=== PATIENT | female | born 1965 | race Caucasian/White ===

== ENCOUNTER 2021-12-19 14:04 | Outpatient (CLI) | payer BC, SELFPAY | END 2021-12-19 14:05 | disposition home or self-care (01) | LOC: AMB 12-30 18:34 | PROVIDERS: PCP Family Medicine; Visit Provider Family Medicine | DX: R11.2 Nausea with vomiting, unspecified (principal) | CPT/HCPCS: A0425; A0427; A0429 ==

== ENCOUNTER 2021-12-19 14:30 | Emergency (ER) | payer BC, SELFPAY ==
[2021-12-19 14:35] VITALS: BP 111/93; PULSE 86; RESP 22; TEMP 36.5; O2SAT 98; BMI 18.5
[2021-12-19 15:00] VITALS: BP 123/90; PULSE 82; O2SAT 99
--- NOTE | 2021-12-19 15:22 | ED.GENADULT ---
HPI - General Adult General Chief complaint: Nausea/Vomiting Stated complaint: Abdominal pain Time Seen by Provider: 12/19/21 14:50 Source: patient History of Present Illness HPI narrative: Cindy is a 56-year-old female past medical history includes TBI, chronic fatigue, tobacco use, anxiety, status post cholecystectomy and appendectomy presents emerged department with nausea vomiting. Patient states this is a chronic issue, she has days where she has episodes of nausea vomiting and then resolve, she states that over the last 2 days she has had increased nausea vomiting and decreased oral intake. She lives at an independent living at [facility]. She has had ongoing weakness weight loss abdominal bloating, she denies any diarrhea and had no bowel movement today, last 1 was yesterday. She feels her urinary output has decreased. She has had for COVID test that were negative, she feels that she is sensitive to the chemicals in a bottle water so she has not been drinking a lot. She denies any prescription meds recreational drug use she did have a few alcoholic drinks yesterday. She missed her orientation her new job at [employer] today this has increased her anxiety as well. Patient denies any sick contacts, she denies any fevers, chills myalgias arthralgias. She has a headache frontal, she has been dizzy and lightheaded. She has been drinking Gatorade and eating crackers her to worsening symptoms presents emerged department. Related Data Previous Rx's Medication Instructions Recorded ondansetron 4 mg disintegrating 4 mg PO DAILY #10 tab 12/19/21 tablet Allergies Allergy/AdvReac Type Severity Reaction Status Date / Time buspirone [From BuSpar] Allergy Verified 12/19/21 15:52 prednisone Allergy Verified 12/19/21 15:52 Review of Systems Status of ROS: Reports: 10 or more systems reviewed and unremarkable except as noted in History and below PFSH PFSH Social History Smoking Status: Former smoker Do you use any of these nicotine containing products: None Second hand tobacco smoke exposure: No How often do you have a drink containing alcohol: 2-3 times a week How many standard drinks containing alcohol do you have on a typical day: 1 or 2 How often do you have six or more drinks on one occasion: Monthly AUDIT-C Alcohol total score: 5 Non-prescribed substance use: denies use service: No Exam Narrative: Exam Narrative: General: Anxious in appearance HEENT: Tympanic membranes within normal limits bilaterally oropharynx is clear and moist, pupils equal round reactive to light, extraocular muscles intact Neck: Supple, full range of motion Lungs: Clear to auscultation bilaterally Heart: Sinus rhythm, S1-S2 Abdomen: Hyperactive bowel sounds, generalized tenderness to mild palpation all quadrants Muscle skeletal: Upper and lower extremity strength +5, patient shaking her upper and lower extremities Neuro: Alert awake and oriented x3, no focal deficits, ambulation normal Psych: She is anxious in appearance, no SI, no hallucinations Const: Vital Signs, click to edit/add: Vital Signs - 24 hr 12/19/21 14:35 Temperature 97.7 F Pulse Rate [Pulse Oximeter] 86 Respiratory Rate 22 Blood Pressure [Le ft Upper Arm] 111/93 H Pulse Oximetry 98 Course Course Hospital Course: 3:15 p.m. workup will include IV peripheral, 0.9 normal saline bolus, 4 mg IV Zofran and 20 mg oral Pepcid, 15 mg IV Toradol, for her symptoms, we will check CBC, CRP, CMP, lipase and treat symptomatically, seems to be a chronic issue, will await lab results to see if further imaging will be obtained. Patient in agreement. Reevaluation(s) Reevaluation #1: Patient was updated on her lab results, CBC showed no acute findings, metabolic panel was unremarkable however did show elevated liver function tests but improved from previous, this is a chronic issue, troponin negative, inflammatory marker CRP was negative. Based on reassuring labs no imaging to be obtained. She was given the above care and did well, she was tolerating orals prior to discharge. Prescription for Zofran 4 mg ODT sent to her pharmacy. Plan would be to have her follow up with her primary care provider in 7-10 days, return precautions given Time: 17:46 Vital Signs Vital signs: Initial Vital Signs Temperature 97.7 F 12/19/21 14:35 Temperature Source Temporal Artery Scan 12/19/21 14:35 Pulse Rate 86 12/19/21 14:35 Pulse Rhythm 12/19/21 14:35 Respiratory Rate 22 12/19/21 14:35 Blood Pressure 111/93 H 12/19/21 14:35 Blood Pressure Mean 99 12/19/21 14:35 Blood Pressure Position Supine 12/19/21 14:35 Pulse Oximetry 98 12/19/21 14:35 Oxygen Delivery Method 12/19/21 14:35 Vital Signs Temperature 97.7 F 12/19/21 14:35 Pulse Rate 86 12/19/21 14:35 Respiratory Rate 22 12/19/21 14:35 Blood Pressure 111/93 H 12/19/21 14:35 Pulse Oximetry 98 12/19/21 14:35 Temperature 97.7 F 12/19/21 14:35 Pulse Rate 86 12/19/21 14:35 Respiratory Rate 22 12/19/21 14:35 Blood Pressure 111/93 H 12/19/21 14:35 Pulse Oximetry 98 12/19/21 14:35 Medical Decision Making Lab Data Labs: Lab Results 12/19/21 12/19/21 12/19/21 Range/Units 15:44 15:44 15:44 WBC 3.40 L (4.50-11.00) K/uL RBC 4.16 (4.00-5.20) m/uL Hgb 13.5 (12.0-16.0) gm/dL Hct 38.1 (33.0-51.0) % MCV 92 (80-100) fL MCH 33 (26-34) pg MCHC 35 (32-36) gm/dL RDW Coeff of Guera 12.5 (11.5-15.5) % Plt Count 248 (140-440) K/uL Neut % (Auto) 60.8 (42.0-72.0) % Lymph % (Auto) 32.4 (20-44) % [place] % (Auto) 5.0 (0.0-11.0) % Eos % (Auto) 0.9 (0.0-7.0) % Baso % (Auto) 0.6 (0.0-3.0) % Neut # (Auto) 2.10 (1.7-7.0) K/uL Lymph # (Auto) 1.10 (0.90-2.90) K/uL [place] # (Auto) 0.20 (0.00-0.90) K/UL Eos # (Auto) 0.00 (0.00-0.50) K/uL Baso # (Auto) 0.00 (0.00-0.30) K/uL Abs Immat Gran (auto) 0.01 (0.00-0.30) K/uL Sodium 138 (135-149) mmol/L Potassium 3.6 (3.6-5.1) mmol/L Chloride 104 (96-114) mmol/L Carbon Dioxide 21 (20-32) mmol/L BUN 7 (7-30) mg/dL Creatinine 0.6 (0.5-1.5) mg/dL Estimated Creat Clear 91.03 Estimated GFR 106 ml/min Glucose 95 (60-115) mg/dL Calcium 9.4 (8.4-10.6) mg/dL Total Bilirubin 1.1 (0.1-1.5) mg/dL AST 73 H (12-35) U/L ALT 44 H (4-35) U/L Alkaline Phosphatase 75 (40-150) U/L Troponin I < 0.01 L (0.01-0.04) ng/mL C-Reactive Protein < 0.5 L (0.5-1.0) mg/dL Total Protein 7.1 (6.0-8.3) g/dL Albumin 4.6 (3.3-5.0) g/dL Lipase 90 (23-300) U/L Discharge Plan Discharge Clinical Impression: Weakness generalized, Shaking, Nausea and vomiting Patient Disposition: Home, Self-Care Instructions: Acute Nausea and Vomiting (ED) Additional Instructions: To follow up with your Primary Care Provider in the next 7-10 days. To return if worsening symptoms. Discharge Diet: Regular Prescriptions: New ondansetron 4 mg tablet,disintegrating 4 mg PO DAILY Qty: 10 0RF Follow Up/Referrals: Derrick Can MD [Primary Care Provider] - Stand Alone Forms: [employer] Management Info Instructions
[2021-12-19 15:55] LABS: Basophils Percent Auto 0.6 % (0.0-3.0); Eosinophils Percent Auto 0.9 % (0.0-7.0); Hematocrit 38.1 % (33.0-51.0); Hemoglobin* 13.5 gm/dL (12.0-16.0); Immature Granulocytes Abs Auto 0.01 K/uL (0.00-0.30); Lymphocytes Percent Auto 32.4 % (20-44); Mean Corpuscular HGB Conc 35 gm/dL (32-36); Mean Corpuscular Hemoglobin 33 pg (26-34); Mean Corpuscular Volume 92 fL (80-100); Neutrophils Percent Auto 60.8 % (42.0-72.0); Platelet Count* 248 K/uL (140-440); RDW Coefficient of Variation % 12.5 % (11.5-15.5); Red Blood Count 4.16 m/uL (4.00-5.20)
[2021-12-19] MEDS: 0.9 % SODIUM CHLORIDE 1000 ml 1,000 ML IV (15:55)
[2021-12-19] MEDS: ONDANSETRON 2 MG/ML inj 4 MG IVP (15:56)
[2021-12-19] MEDS: FAMOTIDINE 20 MG TABLET PO (15:58)
[2021-12-19 16:03] LABS: Slide Review Reflex No
[2021-12-19 16:26] LABS: Chloride* 104 mmol/L (96-114)
[2021-12-19 16:27] LABS: Albumin* 4.6 g/dL (3.3-5.0); Potassium* 3.6 mmol/L (3.6-5.1); Sodium* 138 mmol/L (135-149)
[2021-12-19 16:29] LABS: Creatinine* 0.6 mg/dL (0.5-1.5); Est. Creatinine Clearance* 91.03; Estimated Glomerular Filt Rate 106 ml/min
[2021-12-19 16:30] LABS: Alanine Aminotransferase* 44 U/L (4-35); Alkaline Phosphatase* 75 U/L (40-150); Aspartate Amino Transferase* 73 U/L (12-35); Bilirubin Total* 1.1 mg/dL (0.1-1.5); Blood Urea Nitrogen* 7 mg/dL (7-30); Carbon Dioxide* 21 mmol/L (20-32); Lipase* 90 U/L (23-300); Total Protein* 7.1 g/dL (6.0-8.3)
[2021-12-19 16:31] LABS: Calcium* 9.4 mg/dL (8.4-10.6); Glucose* 95 mg/dL (60-115)
[2021-12-19 16:34] LABS: C Reactive Protein* < 0.5 mg/dL (0.5-1.0)
[2021-12-19] MEDS: KETOROLAC 15 MG/ML inj IVP (17:08)
[2021-12-19 17:39] LABS: Troponin I* < 0.01 ng/mL (0.01-0.04)
[2021-12-19 18:10] VITALS: BP 139/102; PULSE 76; O2SAT 99
== END 2021-12-19 18:15 | disposition home or self-care (01) ==
PROVIDERS: Emergency Provider Student in an Organized Health Care Education/Training Program; PCP Family Medicine
DX: R53.1 Weakness (principal); R11.2 Nausea with vomiting, unspecified
CPT/HCPCS: 36415; 80053; 83690; 84484; 85025; 86140; 96374; 96375; 99283; 99284; A9270; J1885; J2405; J7030

== ENCOUNTER 2022-02-25 17:04 | Outpatient (CLI) | payer BC, SELFPAY ==
--- OUTSIDE RECORDS SUMMARY | 2022-02-25 17:06 | XMS_ITS | Clinical Summary ---
:1965 Author Organization [employer] [facility] [place] [address] Care Team Providers Name Role Phone Pcp, No Primary Care Provider Unavailable Allergies Active Allergy Reactions Severity Noted Date Comments Blood-Group Specific *Unknown 04/22/2018 Anti-Le a identified. Substance The anti-Brook[place] is reactive at 37 degrees and IAT so is considered to b e significant. Un its for transfusion jese uld be [place] negative an d IAT (gel) crossmatc h compatible. Buspirone Intolerance-Can't 04/15/2006 made grogg y Take Latex Rash 04/14/2015 Mold Extracts *Unknown 04/15/2006 Medications Medication Sig Dispensed Refills Start Date End Date Status Retin-A 0.01 % gel APPLY TOPICALLY 0 06/23/2021 Active TO THE AFFECTED AREA AT BEDTIME pantoprazole (PROTONIX) 0 10/30/2021 Active 40 mg delayed-release tablet ondansetron (ZOFRAN Place 1 Tablet (4 30 Tablet 2 11/06/2021 Active ODT) 4 mg mg) on the tongue disintegrating every 8 hours if tabletIndications: needed for Vomiting in adult Nausea/Vomiting. ondansetron (Zofran) 4 Take 1 Tablet (4 30 Tablet 2 01/15/2022 Active mg tabletIndications: mg) by mouth 2018 novel times daily if coronavirus infection needed for Nausea/Vomiting. sertraline (ZOLOFT) 50 Take 1 Tablet (50 30 Tablet 3 2 Active mg tabletIndications: mg) by mouth Anxiety, Major every morning. depressive disorder, recurrent, moderate (HC) Active Problems Problem Noted Date Hepatomegaly 07/22/2016 Overview: see [place] [facility] Steatosis of liver 07/22/2016 Overview: ?ETOH Dilated bile duct 02/05/2016 Pruritus 02/05/2016 Muscular pain 02/05/2016 Clostridium difficile colitis 04/14/2015 Vitamin D deficiency 11/03/2013 Anxiety state, unspecified 04/15/2006 Overview: Dec 2021: started on sertraline (Zoloft) and referred to psychologist. 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/2006 Overview: Chronic Diarrhea Colonoscopy 11/2018 normal biopsies, repe at in 10 years Encounters Date Type Specialty Care Team Description 01/28/2022 Phone Office Visit Angela Herrera [facility] ASSISTANT FACILITY MANAGER 01/28/2022 Travel 01/15/2022 Office Visit Jason Hanna, Follow Up (Concussion ) 01/15/2022 Telephone Jason Hanna Depres sion MD 01/15/2022 Travel 01/04/2022 Orders Only Scanner <No scans attac hed> 11/30/2021 Ancillary Procedure 11/30/2021 Travel from Last 3 Months Immunizations Name Administration Dates Next Due Influenza RIV4 (Age 18+ Years) PRESERV FREE 05/27/2019 Influenza, IIV4 04/15/2015 Td, Preservative Free (age >= 7 Years) 11/07/2016 Tdap, Unspecified 03/14/2008 Family History Medical History Relation Name Comments Blood Disease Father DVT, also w bone cancer Cancer Father bone Cancer-breast Maternal Aunt Other Sister 3 Brain Tumor Other Sister 4 epilepsy Relation Name Status Comments Father Maternal Aunt Sister 1 Alive Sister 2 Alive Sister 3 Sister 4 Son 1 Alexander Deras Alive born in 1988 Son 2 Rohit Deras Alive born in 1991 Son 3 Lester Mcmahon Alive born [id number] Son 4 Deng Mcmahon Alive born [id number] Social History Tobacco Use Types Packs/Day Years Used Date Former Smoker Cigarettes 0.3 30 Quit: 05/2020 Smokeless Tobacco: Never Used Tobacco Cessation: Counseling Given: Yes Alcohol Use Standard Drinks/Week Comments Not Currently 0 (1 standard drink = 0.6 oz pure interm ittent, history of heavy use alcohol) Alcohol Habits Answer Date Recorded How often do you have a drink Not asked containing alcohol? How many drinks containing alcohol do Not asked you have on a typical day when you are drinking? How often do you have six or more Not asked drinks on one occasion? Comment: intermittent, history of heavy use 04/14 Sex Assigned at Date Recorded Not on file COVID-19 Exposure Response Date Recorded In the last 10 days, have you been in contact Unable to asse ss 01/28/2022 7:24 AM CDT with someone who was confirmed or suspected to have Coronavirus/COVID-19? Obstetrics History Last Filed Vital Signs Vital Sign Reading Time Taken Comments Blood Pressure 114/76 01/15/2022 3:32 PM CDT Pulse 103 01/15/2022 3:32 PM CDT Temperature 36.7 ??C (98.1 ??F) 08/16/2021 10:43 AM CDT Respiratory Rate 16 08/16/2021 10:43 AM CDT Oxygen Saturation 99% 08/16/2021 10:43 AM CDT Inhaled Oxygen Concentration - - Weight 56.4 kg (124 lb 6.4 oz) 01/15/2022 3:32 PM CDT Height 171.5 cm (5' 7.5) 08/16/2021 10:43 AM CDT Body Mass Index 19.2 08/16/2021 10:43 AM CDT Plan of Treatment Upcoming Encounters Date Type Specialty Care Team Description 03/26/2022 [place] [address] [place], [place] [address] (Wo rk) Health Maintenance Due Date Last Done Comments Lipids for age 45-75 08/20/2011 Zoster (shingles) series for age 0308/19/2016 50+ (1 of 2) COVID-19 vaccine series (3 - 09/18/2021 04/20/2021, 021 Booster for Pfizer series) Influenza for age 50-64 01/31/2022 05/27/2019, 04/15/2015 Pap test for age 21-65 03/29/2022 03/29/2019, 03/29/2019, 03/12/2013, Additional history exists BMI (ht and wt on same day) for 08/16/2022 08/16/2021, 09/0 01/2016, age 18+ 08/23/2015 Mammogram for age 45-75 11/30/2022 11/30/2021, 03/16/2013 Depression screening for age 12+ 01/15/2023 01/15/2022, Tetanus booster 11/07/2026 11/07/2016, 03/14/2008 Colonoscopy through age 75 12/14/2028 12/14/2018, 9, 12/14/2018 Tdap Completed 03/14/2008 Hepatitis C screening for age Completed 11/02/2013 18-79 Procedures Procedure Name Priority Date/Time Associated Diagnosis Comme nts SCAN 01/04/2022 12:00 AM Results for this CORRESP-IMAGING CDT procedure ar e in the results section. XR MAMMO BILAT Routine 11/30/2021 9:13 AM Visit for screening Results for this SCREEN IMPLANT CDT mammogram procedure are in the results section. from Last 3 Months Results SCAN CORRESP-IMAGING (01/04/2022 12:00 AM CDT) Narrative This result has an attachment that is no t available. Scanner OTHER XR MAMMO BILAT SCREEN IMPLANT (11/30/2021 9:13 AM CDT) Anatomical Region Laterality Modality BREASTS, Breast Left, Breast Right Bilateral Mammo graphy Specimen (Source) Anatomical Location Collection Method / Collectio n Time Received Time / Laterality Volume Impressions 11/30/2021 12:34 PM CDT ??There is no radiographic evidence for malignancy. ??Recommend annual mammograms. MAMMOGRAM ASSESSMENT: ??ACR 1 Negative PATIENTS: You will also receive a letter with your examination results in an easy to read format. ??If you have qu estions about your results, please contact your referring provider. Narrative 11/30/2021 12:34 PM CDT For Patients: As a result of the 21st Century Cures Act, medical imaging exams and procedure reports are released immediately into your electronic medical record. You may view this report before your referring provider. If you have questions, please contact [facility] care provider. XR MAMMO BILAT SCREEN IMPLANT [[id number]] CLINICAL HISTORY: ??This is an asymptoma tic 56 y.o. patient. INDICATION FOR EXAM: Mammogram Screening . TECHNIQUE: CC & MLO views were obtained. Implant displacement views were obtained. This study was evaluated with the assistance of Computer-Aided Detection. COMPARISON FILM: Yes 03/16/13 Simplist ?? FINDINGS: ??The breasts are heterogeneou sly dense, which may obscure small masses. There are no dominant masses, coelho spicious micro calcifications or areas of architectural distortion. Lai Hillman MD MAMMO from Last 3 Months Insurance Payer Benefit Plan / Subscriber ID Effective Dates Phone Addre ss Type Group WC WORKERS WC SFM [id number] 2020-Presen [address] [place] [address] [employer] CR[employer] ME BLUE ADVANTAGE [id number] 2018-Present [address] [address] [place] [address] BLUE CROSS BLUE CROSS OF [id number] 2020-Presen [address] [place] [address] Cindy Rawls Personal/Family Self 1965 [address] (Home) [address] [place] [address] Cindy Rawls Workers Comp Self 1965 [phone] [id number] (Home) [place] [phone] [place], [place] (Work) [phone] Advance Directives Latest Code Status on File Code Status Date Activated Date Inactivated Comments Full Code 02/05/2016 2:24 PM 02/05/2016 6:17 PM Full Code 04/14/2015 5:13 PM 04/15/2015 3:56 PM Care Teams Fire Crew Worker Relationship Specialty Start Date End Date Pcp, No PCP - General 10/01/21 .
--- OUTSIDE RECORDS SUMMARY | 2022-02-25 17:06 | XMS_ITS ---
:1965 Author Care Team Providers Name Role Phone Wanda Padron Primary Care Provider Unavailable Allergies None recorded. Medications Name Status Start Date Stop Date ? ? famotidine 40 mg tablet Active ? Not avai lable TAKE 1 TABLET BY MOUTH EVERY DAY AT BEDTIME ondansetron 4 mg disintegrating tablet Active ? Not available DISSOLVE 1 TABLET ON THE TONGUE EVERY 8 HOURS NEED ED FOR NAUSEA OR VOMITING tretinoin 0.01 % topical gel Active ? Not available APPLY EXTERNALLY TO THE AFFECTED AREA DAILY Problems None recorded. Procedures None recorded. Results Lab Results None recorded. Past Encounters 01/19/2021 Administrative Reason for Encounter; His tory and Physical Examination, Occupation Wanda Padron PA-C: [address], [place] [address], Ph. Social History None recorded. Vaccine List None recorded. Plan of Care Reminders Provider Appointments None recorded. ? ? Lab None recorded. ? ? Referral None recorded. ? ? Procedures None recorded. ? ? Surgeries None recorded. ? ? Imaging None recorded. ? ? Vitals None recorded.
[2022-02-26 16:34] LABS: Chlamydia DNA Amplified* NOT DETECTED (No Detected)
[2022-02-26 17:48] LABS: GC DNA Amplified* DETECTED (No Detected)
== END 2022-02-25 17:05 | disposition home or self-care (01) ==
LOC: NFLDUCLAB 17:04
PROVIDERS: PCP Family Medicine; Visit Provider Nurse Practitioner Family
DX: Z72.51 High risk heterosexual behavior (principal)
CPT/HCPCS: 87086; 87491; 87591

== ENCOUNTER 2022-03-08 11:45 | Outpatient (RCR) | payer BC, SELFPAY | END 2022-10-01 16:18 | disposition home or self-care (01) | PROVIDERS: PCP Family Medicine; Visit Provider Family Medicine | DX: F07.81 Postconcussional syndrome (principal); Z51.89 Encounter for other specified aftercare | CPT/HCPCS: 97110; 97140; 97162 ==

== ENCOUNTER 2022-05-20 18:11 | Outpatient (CLI) | payer BC, SELFPAY ==
[2022-05-21 00:22] LABS: Chlamydia DNA Amplified* NOT DETECTED (No Detected); GC DNA Amplified* NOT DETECTED (No Detected)
== END 2022-05-20 18:12 | disposition home or self-care (01) ==
LOC: NFLDUCREF 18:11
PROVIDERS: PCP Family Medicine; Visit Provider Student in an Organized Health Care Education/Training Program
DX: R30.0 Dysuria (principal); N39.0 Urinary tract infection, site not specified
CPT/HCPCS: 87086; 87186; 87491; 87591

== ENCOUNTER 2022-08-01 12:15 | Outpatient (CLI) | payer BC, SELFPAY ==
[2022-08-02 00:05] LABS: Chlamydia DNA Amplified* NOT DETECTED (No Detected); GC DNA Amplified* NOT DETECTED (No Detected)
== END 2022-08-01 12:16 | disposition home or self-care (01) ==
PROVIDERS: PCP Family Medicine; Visit Provider Student in an Organized Health Care Education/Training Program
DX: R11.2 Nausea with vomiting, unspecified (principal); R30.0 Dysuria
CPT/HCPCS: 87086; 87186; 87491; 87591